=== PATIENT | female | born 1960 | race Caucasian/White ===

== ENCOUNTER 2016-03-30 18:55 | Emergency (ER) | payer BC, OTHER ==
[2016-03-30] MEDS ORDERED: ONDANSETRON 4 MG/2 ML VIAL ONE (19:58)
[2016-03-30] MEDS ORDERED: SODIUM CHLORIDE 0.9% 1,000 ML IV ONE ×2 (19:58→19:59)
[2016-03-30] MEDS ORDERED: HYDROmorphone 1 MG/ML SYRINGE ONE (19:58)
[2016-03-30] MEDS ORDERED: ONDANSETRON 4 MG/2 ML VIAL IVP STA (19:59)
[2016-03-30] MEDS ORDERED: HYDROmorphone 1 MG/ML SYRINGE IVP STA (19:59)
[2016-03-30] MEDS ORDERED: ACETAMINOPHEN 1,000 MG/100 ML 100 ML IV STA (20:00)
[2016-03-30] MEDS ORDERED: ACETAMINOPHEN 1,000 MG/100 ML 100 ML IV ONE (20:05)
[2016-03-30] MEDS ORDERED: KETOROLAC 60 MG/2 ML VIAL IVP STA (21:36)
[2016-03-30] MEDS ORDERED: KETOROLAC 30 MG/ML VIAL ONE (21:38)
[2016-03-30] MEDS ORDERED: IOPAMIDOL-300 100 ML VIAL IVP ONE (21:41)
[2016-03-30] MEDS ORDERED: ONDANSETRON ODT 4 MG Prepack 2 TL ONE (21:59)
[2016-03-30] MEDS ORDERED: HYDROcod/ACET 5/325 Prepack 6 PO ONE ×2 (21:59→22:08)
[2016-03-30] MEDS ORDERED: ONDANSETRON ODT 4 MG Prepack 2 TL PRN (22:08)
== END 2016-03-30 22:26 | disposition home or self-care (01) ==
DX: N13.2 Hydronephrosis with renal and ureteral calculous obstruction (principal); R10.32 Left lower quadrant pain; F17.200 Nicotine dependence, unspecified, uncomplicated
CPT/HCPCS: 36415; 74177; 80053; 81001; 83690; 85025; 96365; 96375; 99284; J0131; J1170; Q9967

== ENCOUNTER 2020-11-23 16:45 | Outpatient (CLI) | payer OTHER | END 2020-11-23 16:46 | disposition home or self-care (01) | LOC: COV 16:45 | PROVIDERS: ATTEND Family Medicine | DX: R53.83 Other fatigue (principal); R09.81 Nasal congestion; J34.89 Other specified disorders of nose and nasal sinuses; Z20.822 Contact with and (suspected) exposure to COVID-19 ==

== ENCOUNTER 2021-08-03 13:57 | Outpatient (CLI) | payer OTHER ==
--- NOTE | 2021-08-03 16:06 | Mammography Report ---
BILATERAL DIGITAL SCREENING MAMMOGRAM 3D/2D: 08/03/2021 CLINICAL: Routine screening. Family history of breast cancer. Comparison is made to exam dated: 01/28/2013 mammogram - [facility]. There are sca ttered fibroglandular elements in both breasts. No significant masses, calcifications, or other findings are seen in either breast. There has been no significant interval change. IMPRESSION: NEGATIVE There is no mammographic evidence of malignancy. A 1 year screening mammogram is recommended. This exam was interpreted at Station ID: [id number]. NOTE: For mammograms, a report in lay terms will be sent to the patient. Approximately 15% of breast malignancies will not be visualized mammographically. In the management of a palpable breast mass, a negative mammogram must not discourage biopsy of a clinically suspicious lesion. Electronically Signed By: Kell hooper/ronda:08/03/2021 15:40:37 ACR BI-RADS Category 1: Negative 3341F PARENCHYMAL PATTERN: (A) - The breast(s) demonstrate(s) scattered fibroglandular densities. BI-RADS CATEGORY: (1) - 1 RECOMMENDATION: (ANNUAL) - Recommend routine annual screening mammography. [id number] 1 year screening LATERALITY: (B)
== END 2021-08-03 13:58 | disposition home or self-care (01) ==
LOC: DI.S 13:57
PROVIDERS: ATTEND Naturopath
DX: Z12.31 Encounter for screening mammogram for malignant neoplasm of breast (principal); Z80.3 Family history of malignant neoplasm of breast